=== PATIENT | male | born 1990 | race Caucasian/White ===

== ENCOUNTER → 2018-04-25 | Day surgery (SDC) | payer OTHER, MEDICAID ==
[~2018-04-25] VITALS: Ht 162.6 cm; Wt 41.4 kg
[~2018-04-25] MED LIST: ACETAMINOPHEN 1000 MG/ISO-OSM 100 ML IV ONE; AMPICILLIN SODIUM 1 GM/VIAL ONE; FLUO20SO4 PO; IBUP100O28 PO; MIDAZOLAM HCL 2 MG/2 ML VIAL IVP ONE; MIDAZOLAM HCL 2 MG/2 ML VIAL IVP PRN; MIDAZOLAM HCL 5 MG/ML VIAL ONE; MIRALAX PO; MULT9LIQ6 PO; PHEN118S38 PO; RINGERS SOLUTION,LACTATED 0 ML IV ONE; RINGERS SOLUTION,LACTATED 1,000 ML IV ONE; RISP2L PO
== END | disposition home or self-care (01) ==
LOC: SURGERY 06:30
PROVIDERS: ATTEND Dentist General Practice
DX: K05.30 Chronic periodontitis, unspecified (principal); K03.6 Deposits [accretions] on teeth; Q93.82 Williams syndrome; K59.00 Constipation, unspecified; F41.8 Other specified anxiety disorders; E46 Unspecified protein-calorie malnutrition; F72 Severe intellectual disabilities; Z68.1 Body mass index [BMI] 19.9 or less, adult; Z79.1 Long term (current) use of non-steroidal anti-inflammatories (NSAID); Z98.890 Other specified postprocedural states; Z79.899 Other long term (current) drug therapy
CPT/HCPCS: 41899; J0131; J0290; J2250 ×2; J7120

== ENCOUNTER 2022-07-06 06:16 | Day surgery (SDC) | payer OTHER ==
[~2022-07-06 06:16] MED LIST changes: -ACETAMINOPHEN 1000 MG/ISO-OSM 100 ML IV ONE; -AMPICILLIN SODIUM 1 GM/VIAL ONE; -IBUP100O28 PO; +LISI-893 PO; -MIDAZOLAM HCL 2 MG/2 ML VIAL IVP ONE; -MIDAZOLAM HCL 2 MG/2 ML VIAL IVP PRN; -MIDAZOLAM HCL 5 MG/ML VIAL ONE; -RINGERS SOLUTION,LACTATED 0 ML IV ONE; -RINGERS SOLUTION,LACTATED 1,000 ML IV ONE; +RISP1SOL11 PO; -RISP2L PO
[2022-07-06] MEDS ORDERED: PROPOFOL 1% 20 ML VIAL IVP ONE (06:17)
[2022-07-06] MEDS ORDERED: GLYCOPYRROLATE 0.2 MG/ML VIAL IM ONE (06:17)
[2022-07-06] MEDS ORDERED: KETAMINE HCL 50 MG/ML 10 ML VIAL IVP ONE (06:17)
[2022-07-06] MEDS ORDERED: LIDOCAINE/PF 2% 5 ML VIAL IM ONE (06:17)
[2022-07-06] MEDS ORDERED: RINGERS SOLUTION,LACTATED 1,000 ML IV ONE (06:30)
[2022-07-06 06:55] LABS: COVID AG,FIA SOURCE NASOPHARYNGEAL
[2022-07-06] MEDS ORDERED: SODIUM CHLORIDE 0.9% 1,000 ML IV ONE (07:00)
[2022-07-06] MEDS ORDERED: AMPICILLIN SODIUM 2 GM/NS 100 ML IV ONE (07:37)
[2022-07-06] MEDS ORDERED: MIDAZOLAM HCL 5 MG/ML VIAL ONE (08:36)
[2022-07-06 09:24] LABS: BASOPHILS % (AUTO) 0.3 % (0.0-2.0); EOSINOPHILS % (AUTO) 0 % (1.0-6.0); HEMATOCRIT 37.7 % (41-53); HEMOGLOBIN 12.7 g/dL (13.5-17.5); LYMPHOCYTES # (AUTO) 0.5 K/uL (1.0-4.8); LYMPHOCYTES % (AUTO) 7.7 % (22.0-44.0); MEAN CORPUSCULAR HEMOGLOBIN 30.5 pg (26.0-34.0); MEAN CORPUSCULAR HGB CONC 33.7 G/dL (31.0-37.0); MEAN CORPUSCULAR VOLUME 91 fL (80-100); MONOCYTES # (AUTO) 0.3 K/uL (0.1-1.0); MONOCYTES % (AUTO) 5.2 % (2.0-9.0); NEUTROPHILS # (AUTO) 5.7 K/uL (1.8-7.7); PLATELET COUNT (AUTO) 138 K/uL (150-450); RED BLOOD CELL COUNT(AUTO) 4.16 MIL/uL (4.50-5.90); RED CELL DISTRIBUTION WIDTH 14.3 % (11.5-14.5)
[2022-07-06 09:27] LABS: NEUTROPHILS % (AUTO) 86.8 % (40.0-70.0)
[2022-07-06 09:28] LABS: ANION GAP 8 mmol/L (8-16); CALCIUM, TOTAL 9.1 mg/dL (8.8-10.5); CARBON DIOXIDE 27 mmol/L (22-29); CHLORIDE 104 mmol/L (98-107); CREATININE 0.67 mg/dL (0.60-1.30); GLUCOSE,RANDOM 128 mg/dL (70-110); POTASSIUM 3.5 mmol/L (3.5-5.1); SODIUM SERUM 139 mmol/L (136-145); UREA NITROGEN, BLOOD 25 mg/dL (7-18)
[2022-07-06 09:30] LABS: GLOMERULAR FILTR. RATE CALC > 60 mL/min (>60)
[2022-07-06 09:32] LABS: INR 1.2 (0.9-1.1); PROTHROMBIN TIME 12.4 SEC (9.4-11.6)
[2022-07-06 09:34] LABS: ALANINE AMINOTRANSFERASE 18 U/L (12-78); ALKALINE PHOSPHATASE 53 U/L (46-116); ASPARTATE AMINOTRANSFERASE 11 U/L (15-37); BILIRUBIN,TOTAL 0.5 mg/dL (0.1-1.0); TOTAL PROTEIN, SERUM 6.8 g/dL (6.4-8.2)
== END 2022-07-06 11:00 | disposition home or self-care (01) ==
LOC: SURGERY 06:16
PROVIDERS: ATTEND Dentist General Practice
DX: K05.30 Chronic periodontitis, unspecified (principal); Z53.8 Procedure and treatment not carried out for other reasons; Q93.82 Williams syndrome; R62.50 Unspecified lack of expected normal physiological development in childhood; Z79.899 Other long term (current) drug therapy; Z98.890 Other specified postprocedural states; Z79.01 Long term (current) use of anticoagulants; Z20.822 Contact with and (suspected) exposure to COVID-19
CPT/HCPCS: 71045; 87426; 80053; 85025; 85610; 85730; 36415; 93005; J0290; J2704; J3490 ×3; J2250; C9803